=== PATIENT | female | born 1950 | race Caucasian/White ===

== ENCOUNTER 2017-01-26 14:24 | Inpatient (IN) | payer OTHER ==
[~2017-01-26] VITALS: Ht 170.2 cm; Wt 86.6 kg
[~2017-01-26 14:24] MED LIST: ANTIVERT25 MG PO; CALCIUM 600 +1 EAC1 PO; ESSENTIAL ONE1 EACH PO; GLUCOSAMINE1000 MG PO; LEVOTHYROXINE125 MCG PO; RANITIDINE HCL300 MG PO
[2017-01-26 15:16] LABS: HEMATOCRIT 44.6 % (36.0-46.0); MCH 29.6 PG (29.0-34.0); MCHC 32.7 G/DL (30.0-36.0); MCV 90.5 FL (83-99); MEAN PLAT.VOLUME 10.3 uM^3 (9.5-12.4); PLATELET COUNT 195 K/uL (156-360); RBC DIS.WIDTH-CV 13.4 % (11.8-14.6); RBC DIS.WIDTH-SD 44.3 % (39-53); RED BLOOD COUNT 4.93 M/uL (3.80-5.20); WHITE BLOOD COUNT 7.6 K/uL (4.1-10.2)
[2017-01-26 15:34] LABS: CHLORIDE 107 mEq/L (99-109)
[2017-01-26 15:35] LABS: POTASSIUM 4.4 mEq/L (3.7-5.4); SODIUM 142 mEq/L (136-147)
[2017-01-26 15:37] LABS: GLUCOSE 105 mg/dL (70-99)
[2017-01-26 15:38] LABS: ANION GAP 9 MEQ/L (2-14)
[2017-01-26 15:39] LABS: TOTAL BILIRUBIN 0.8 mg/dL (0.0-1.0)
[2017-01-26 15:40] LABS: ALKALINE PHOSPHATASE 105 IU/L (3-129); GFR ESTIMATE (CALCULATED) > 59 mL/min/
[2017-01-26 15:42] LABS: UREA NITROGEN (BUN) 15 mg/dL (9-23)
[2017-01-26] MEDS ORDERED: SYNTHROID112 MCG PO (17:33)
[2017-01-26] MEDS ORDERED: CALCIUM MAGNES1 EACH PO (17:33)
[2017-01-26] MEDS ORDERED: ADVIL,NUPRIN,M200 MG PO (17:34)
[2017-01-26] MEDS ORDERED: ONE-A-DAY ESSE1 EAC1 PO (17:34)
[2017-01-26] MEDS ORDERED: BENADRYL ALLERG25 MG PO (17:34)
[2017-01-26 21:46] VITALS: BP 152/78
[2017-01-27 03:06] VITALS: BP 129/70
[2017-01-27 06:40] VITALS: BP 127/74
[2017-01-27 11:12] VITALS: BP 132/68
[2017-01-27 12:22] LABS: HEMATOCRIT 42.9 % (36.0-46.0); MCH 29.7 PG (29.0-34.0); MCHC 32.6 G/DL (30.0-36.0); MCV 90.9 FL (83-99); MEAN PLAT.VOLUME 10.9 uM^3 (9.5-12.4); PLATELET COUNT 220 K/uL (156-360); RBC DIS.WIDTH-CV 13.4 % (11.8-14.6); RBC DIS.WIDTH-SD 45.1 % (39-53); RED BLOOD COUNT 4.72 M/uL (3.80-5.20); WHITE BLOOD COUNT 16.1 K/uL (4.1-10.2)
[2017-01-27 15:53] VITALS: BP 131/85
[2017-01-27 21:35] LABS: POINT-OF-CARE METER ID UU14162508
[2017-01-28 00:03] VITALS: BP 130/68
[2017-01-28 07:20] VITALS: BP 134/69
[2017-01-28 08:42] LABS: HEMATOCRIT 40.2 % (36.0-46.0); MCH 30.9 PG (29.0-34.0); MCHC 34.1 G/DL (30.0-36.0); MCV 90.5 FL (83-99); MEAN PLAT.VOLUME 10.7 uM^3 (9.5-12.4); PLATELET COUNT 192 K/uL (156-360); RBC DIS.WIDTH-CV 13.5 % (11.8-14.6); RBC DIS.WIDTH-SD 44.9 % (39-53); RED BLOOD COUNT 4.44 M/uL (3.80-5.20); WHITE BLOOD COUNT 12.2 K/uL (4.1-10.2)
[2017-01-28 09:08] LABS: ANION GAP 9 MEQ/L (2-14); CHLORIDE 106 MEQ/L (99-109); GFR ESTIMATE (CALCULATED) > 59 mL/min/; GLUCOSE 121 mg/dL (70-99); SAMPLE HEMOLYSIS CHECK 0; SAMPLE ICTERIC CHECK 0; SAMPLE LIPEMIA CHECK 0; SODIUM 139 MEQ/L (136-147); UREA NITROGEN (BUN) 14 mg/dL (9-23); VANCOMYCIN, TROUGH 15.7 MCG/ML (10-20)
[2017-01-28] MEDS ORDERED: BACTRIM,SEPT1 TABLET PO ×2 (10:07→10:33)
[2017-01-28] MEDS ORDERED: AMOX TR-K CLV1 EAC4 PO ×2 (10:07→10:33)
== END 2017-01-28 11:11 | disposition home or self-care (01) | DRG 603 ==
LOC: EME 14:24 → 2EAST 17:57 → EDOF 17:57 → 2EAST 21:33
PROVIDERS: Internal Medicine; Physician Assistant
DX: L03.113 Cellulitis of right upper limb (principal); K21.9 Gastro-esophageal reflux disease without esophagitis; M79.641 Pain in right hand; M19.90 Unspecified osteoarthritis, unspecified site; Z96.653 Presence of artificial knee joint, bilateral; E03.9 Hypothyroidism, unspecified; T63.441D Toxic effect of venom of bees, accidental (unintentional), subsequent encounter; S60.561D Insect bite (nonvenomous) of right hand, subsequent encounter; Z88.1 Allergy status to other antibiotic agents
CPT/HCPCS: 73201; 80048; 80053; 80202; 82565; 82948; 83605; 84520; 85027; 85651; 87040; 87070; 87075; 87205; 99281; 99285; J0290; J1200; J2543; J2930; J3370; J7030; J7050; S0028